=== PATIENT | female | born 1945 | race Caucasian/White ===

== ENCOUNTER 2021-02-10 19:39 | Observation (INO) ==
[2021-02-10] MEDS ORDERED: Ondansetron 4 MG/2 ML VIAL IVP PRN (22:24)
[2021-02-10] MEDS ORDERED: Naloxone 0.4 MG/ML INJ IVP PRN (22:24)
[2021-02-10] MEDS ORDERED: Melatonin 3 MG TABLET PO PRN (22:24)
[2021-02-11 05:38] LABS: Basophils # 0.1 K/mcL (0.0-0.2); Basophils % 0.5 %; Eosinophils # 0.5 K/mcL (0.0-0.6); Eosinophils % 3.9 %; Hematocrit 37.6 % (35.3-44.9); Hemoglobin 12.2 g/dL (11.5-15.4); Immature Granulocytes % 1.2 % (0-4); Lymphocytes # 3.3 K/mcL (0.6-4.6); Lymphocytes % 28.3 %; Mean Corpuscular HGB Conc 32.4 g/dL (31.6-35.5); Mean Corpuscular Hemoglobin 30.2 pg (28.0-33.3); Mean Corpuscular Volume 93.1 fL (83.0-100.0); Mean Platelet Volume 9.1 fL (9.4-12.4); Monocytes # 1.1 K/mcL (0.0-1.3); Monocytes % 9.1 %; Neutrophils # 6.7 K/mcL (1.6-8.9); Platelet Count 304 K/mcL (140-400); Red Blood Count 4.04 M/mcL (3.82-4.97); Red Cell Distribution Width 14.3 % (11.5-14.5); White Blood Count 11.7 K/mcL (4.3-11.1)
[2021-02-11 06:18] LABS: Alanine Aminotransferase 12 Units/L (7-52); Albumin 3.3 g/dL (3.5-5.7); Albumin/Globulin Ratio 1.2 (1.1-2.2); Alkaline Phosphatase 60 Units/L (34-104); Aspartate Amino Transferase 15 Units/L (13-39); BUN/Creatinine Ratio 28 (6-26); Bilirubin,Total 0.7 mg/dL (0.3-1.0); Blood Urea Nitrogen 21 mg/dL (8-23); Calcium 8.5 mg/dL (8.6-10.3); Carbon Dioxide 23 mEq/L (23-29); Chloride 101 mEq/L (98-107); Globulin 2.8 g/dL (2.4-3.5); Glucose 92 mg/dL (70-105); Magnesium 1.9 mg/dL (1.6-2.6); Osmolality,Calculated 287 (280-300); Phosphorous 2.2 mg/dL (2.7-4.5); Potassium 3.3 mEq/L (3.5-5.1); Sodium 137 mEq/L (136-145); Total Protein 6.1 g/dL (6.4-8.9); Troponin I < 0.03 ng/mL (< 0.04); eGFR For African Americans > 60 (> 60); eGFR For Non-African Americans > 60 (> 60)
[2021-02-11] MEDS ORDERED: Acetaminophen 325 MG TABLET PO PRN (06:44)
[2021-02-11] MEDS ORDERED: Potassium Chloride 40 MEQ, Lidocaine 1% 2 ML in 0.9 % Sodium Chloride 500 ML IVPB ONE (07:00)
[2021-02-11] MEDS ORDERED: Regadenoson 0.4 MG/5 ML SYRINGE IVP ONE (07:29)
[2021-02-11] MEDS: Calcium Gluconate 1gm/50mL 1 GM/50 ML BAG IVPB SCH ×2 (09:17→10:12)
[2021-02-11] MEDS ORDERED: Perflutren Lipid Microsphere 1.3 ML in 0.9 % Sodium Chloride 8.7 ML IVP PRN (11:41)
[2021-02-11 12:23] LABS: Estimated Average Glucose 123 mg/dl; Hemoglobin A1C 5.9 %
[2021-02-11 12:55] LABS: Chol/HDL Ratio 4.8 (0-4.9); Cholesterol 254 mg/dL (< 200); HDL Cholesterol 53 mg/dL (40-59); LDL Cholesterol,Calculated 166 mg/dL (< 100); Thyroid Stimulating Hormone 1.911 mcIU/mL (0.340-5.600); Triglycerides 174 mg/dL (< 150); Troponin I < 0.03 ng/mL (< 0.04)
[2021-02-11] MEDS: carvediloL 6.25 MG TABLET PO SCH (17:20)
[2021-02-11] MEDS: Aspirin 81 MG TAB.CHEW PO SCH (20:08)
[2021-02-12 07:31] VITALS: BP 158/94
[2021-02-12] MEDS: carvediloL 6.25 MG TABLET PO SCH (07:41)
[2021-02-12] MEDS: Aspirin 81 MG TAB.CHEW PO SCH (07:41)
[2021-02-12 08:11] LABS: Hematocrit 39.8 % (35.3-44.9); Hemoglobin 12.6 g/dL (11.5-15.4); Mean Corpuscular HGB Conc 31.7 g/dL (31.6-35.5); Mean Corpuscular Hemoglobin 29.6 pg (28.0-33.3); Mean Corpuscular Volume 93.4 fL (83.0-100.0); Mean Platelet Volume 9.4 fL (9.4-12.4); Platelet Count 297 K/mcL (140-400); Red Blood Count 4.26 M/mcL (3.82-4.97); Red Cell Distribution Width 14.5 % (11.5-14.5); White Blood Count 11.5 K/mcL (4.3-11.1)
[2021-02-12] MEDS ORDERED: FLUoxetine 20 MG CAPSULE PO SCH (09:00)
[2021-02-12] MEDS ORDERED: lisinopriL 5 MG TABLET PO SCH (09:00)
[2021-02-12] MEDS ORDERED: Cyanocobalamin (B-12) 1,000 MCG TABLET PO SCH (09:00)
[2021-02-12] MEDS ORDERED: Cholecalciferol (D-3) 1,000 UNIT (25MCG) TABLET PO SCH (09:00)
[2021-02-12 09:13] LABS: BUN/Creatinine Ratio 26 (6-26); Blood Urea Nitrogen 19 mg/dL (8-23); Calcium 8.7 mg/dL (8.6-10.3); Carbon Dioxide 24 mEq/L (23-29); Chloride 103 mEq/L (98-107); Glucose 98 mg/dL (70-105); Osmolality,Calculated 280 (280-300); Phosphorous 1.8 mg/dL (2.7-4.5); Potassium 4.3 mEq/L (3.5-5.1); Sodium 134 mEq/L (136-145); eGFR For African Americans > 60 (> 60); eGFR For Non-African Americans > 60 (> 60)
[2021-02-12] MEDS ORDERED: Isosorbide MONOnitrate (24 HR) 30 MG TAB.ER.24H PO SCH (10:30)
[2021-02-12] MEDS ORDERED: carvediloL 6.25 MG TABLET PO SCH (17:00)
== END 2021-02-12 15:44 | disposition home or self-care (01) ==
LOC: 3ANU → SUATTDRO 21:34
PROVIDERS: ADMIT Family Medicine; ATTEND Internal Medicine

== ENCOUNTER 2021-03-15 06:09 | Inpatient (IN) ==
[~2021-03-15 06:09] MED LIST: Aspirin 81 MG TAB.CHEW PO ONE
[2021-03-15] MEDS ORDERED: CeFAZolin Syr 2,000MG/20 ML 2,000 MG/20 ML SYRINGE IVPB ONE (06:32)
[2021-03-15] MEDS: Chlorhexidine Rinse 15 ML MOUTHWASH MM SCH ×2 (06:55→20:19)
[2021-03-15] MEDS ORDERED: NiCARdipine 2.5 MG/10 ML Syringe IVPB ONE (06:55)
[2021-03-15] MEDS ORDERED: *HR* Rocuronium Bromide 50 MG/5 ML VIAL ONE ×2 (07:07→11:52)
[2021-03-15] MEDS ORDERED: *HR* Etomidate 20 MG/10 ML AMPUL IVP ONE (07:08)
[2021-03-15] MEDS ORDERED: Famotidine 20 MG/2 ML VIAL ONE (07:08)
[2021-03-15] MEDS ORDERED: Protamine Sulfate 250 MG/25 ML VIAL IVP ONE (07:10)
[2021-03-15] MEDS ORDERED: Calcium Gluconate 1,000 MG/10 ML VIAL ONE (07:10)
[2021-03-15] MEDS ORDERED: Tranexamic Acid 1,000 MG/10 ML VIAL ONE ×2 (07:10→09:14)
[2021-03-15] MEDS ORDERED: *HR* Midazolam HCl 5 MG/5 ML VIAL IVP ONE ×2 (07:11→11:40)
[2021-03-15] MEDS ORDERED: *HR* FentaNYL (PF) 250 MCG/5 ML VIAL ONE ×2 (07:11→11:40)
[2021-03-15] MEDS ORDERED: Heparin 15,000 UNIT in 0.9 % Sodium Chloride 500 ML IV ONE (07:45)
[2021-03-15] MEDS ORDERED: Dextrose 50 % in Water (Vial) 30 ML, Sodium Bicarbonate 20 MEQ, Potassium Chloride 15 M... TH ONE (07:45)
[2021-03-15] MEDS ORDERED: Norepinephrine 4 MG in 0.9 % Sodium Chloride 250 ML IVC PRN (07:45)
[2021-03-15] MEDS ORDERED: Dextrose 50 % in Water (Vial) 30 ML, Sodium Bicarbonate 20 MEQ, Lidocaine 1% 5 ML, Insu... TH ONE ×3 (07:45)
[2021-03-15] MEDS ORDERED: Vancomycin 1,000 MG VIAL ONE (07:52)
[2021-03-15] MEDS ORDERED: Papaverine 60 MG/2 ML VIAL IVP ONE (09:46)
[2021-03-15] MEDS ORDERED: EPHEDrine 50 MG/ML VIAL ONE (11:33)
[2021-03-15] MEDS ORDERED: Ondansetron 4 MG/2 ML VIAL IVP PRN (11:53)
[2021-03-15] MEDS ORDERED: *HR* FentaNYL (PF) 100 MCG/2 ML VIAL IVP PRN (11:53)
[2021-03-15] MEDS ORDERED: Insulin Regular, Human 100 UNIT/ML IV PRN (11:53)
[2021-03-15] MEDS ORDERED: Calcium Gluconate 1gm/50mL 1 GM/50 ML BAG IVPB PRN (11:53)
[2021-03-15] MEDS ORDERED: *HR* Dextrose 50 % in Water (Vial) 50 ML VIAL IVP PRN (11:53)
[2021-03-15] MEDS ORDERED: Acetaminophen 650 MG RECTAL SUPP RC PRN (11:53)
[2021-03-15] MEDS ORDERED: Naloxone 0.4 MG/ML INJ IVP PRN (11:53)
[2021-03-15] MEDS ORDERED: Acetaminophen 325 MG TABLET PO PRN (11:53)
[2021-03-15] MEDS ORDERED: Potassium Chloride 40 MEQ/200 ML BAG IVPB PRN (11:53)
[2021-03-15] MEDS ORDERED: Albumin Human 5% 50.0 GM/1,000 ML IV.SOLN ONE (12:26)
[2021-03-15 13:02] LABS: ABG Base Excess 2 mEq/L (-2 to 3); ABG HCO3 26 mEq/L (21-27); ABG Oxygen Saturation 100 % (95-98); ABG PCO2 37 mmHg (35-45); ABG PH 7.45 pH Units (7.32-7.45); ABG PO2 188 mmHg (85-104); ABG TCO2 27 mEq/L (20-26); Blood Gas VT 500 cc
[2021-03-15 13:06] LABS: Basophils % 0.2 %; Eosinophils # 0.3 K/mcL (0.0-0.6); Eosinophils % 2.4 %; Immature Granulocytes % 0.9 % (0-4); Lymphocytes # 1.7 K/mcL (0.6-4.6); Lymphocytes % 12.3 %; Mean Corpuscular HGB Conc 32.3 g/dL (31.6-35.5); Mean Corpuscular Hemoglobin 29.3 pg (28.0-33.3); Mean Corpuscular Volume 90.6 fL (83.0-100.0); Mean Platelet Volume 9.1 fL (9.4-12.4); Monocytes # 0.4 K/mcL (0.0-1.3); Neutrophils # 11.3 K/mcL (1.6-8.9); Platelet Count 153 K/mcL (140-400); Red Blood Count 2.87 M/mcL (3.82-4.97); Red Cell Distribution Width 13.2 % (11.5-14.5); Segmented Neutrophils % 81.2 %
[2021-03-15 13:11] LABS: INR 1.3; Prothrombin Time 15.3 Seconds (9.4-12.1)
[2021-03-15 13:14] LABS: Activated Partial Thrombo Time 34.8 Seconds (26.0-36.0)
[2021-03-15] MEDS: Pantoprazole 40 MG VIAL IVP SCH (13:15)
[2021-03-15 13:16] LABS: Hemoglobin 8.4 g/dL (11.5-15.4)
[2021-03-15] MEDS: Metoclopramide 10 MG/2 ML VIAL IVP SCH ×3 (13:16→23:14)
[2021-03-15] MEDS: 0.9 % Sodium Chloride w KCl 20 MEQ/1,000 ML MLS IVC SCH (13:17)
[2021-03-15] MEDS: Ringers Solution, Lactated 1,000 ML IVC SCH ×2 (13:18→23:15)
[2021-03-15 13:19] LABS: White Blood Count 13.9 K/mcL (4.3-11.1)
[2021-03-15] MEDS: Albumin Human 5% 12.5 GM/250 ML IV.SOLN IVPB PRN ×4 (13:20→22:22)
[2021-03-15] MEDS: Norepinephrine 4 MG/254 ML IV.SOLN IVC SCH ×2 (13:36→22:22)
[2021-03-15 13:42] LABS: BUN/Creatinine Ratio 24 (6-26); Blood Urea Nitrogen 15 mg/dL (8-23); Calcium 8.5 mg/dL (8.6-10.3); Carbon Dioxide 24 mEq/L (23-29); Chloride 105 mEq/L (98-107); Glucose 112 mg/dL (70-105); Magnesium 2.2 mg/dL (1.6-2.6); Osmolality,Calculated 284 (280-300); Potassium 3.5 mEq/L (3.5-5.1); Sodium 136 mEq/L (136-145); eGFR For African Americans > 60 (> 60); eGFR For Non-African Americans > 60 (> 60)
[2021-03-15] MEDS: niCARdipine 20 MG/200 ML MLS IVC SCH ×4 (14:03→23:15)
[2021-03-15] MEDS: CeFAZolin 2 GM/120 ML BAG IVPB SCH ×2 (15:45→23:14)
[2021-03-15 16:58] LABS: ABG Base Excess 0 mEq/L (-2 to 3); ABG HCO3 24 mEq/L (21-27); ABG Oxygen Saturation 95 % (95-98); ABG PCO2 36 mmHg (35-45); ABG PH 7.44 pH Units (7.32-7.45); ABG PO2 74 mmHg (85-104); ABG TCO2 26 mEq/L (20-26); Blood Gas Modality ASSIST CONTROL; Blood Gas VT 500 cc
[2021-03-15] MEDS ORDERED: Heparin 1,000 UNITS/500 mL IV.SOLN IR ONE (17:33)
[2021-03-15] MEDS ORDERED: D5% in Water 250 ML IV BAG IV ONE (17:33)
[2021-03-15] MEDS ORDERED: Tranexamic Acid 1,000 MG/10 ML VIAL IR ONE (17:33)
[2021-03-15] MEDS ORDERED: *HR* Magnesium Sulfate 2 GM/50 ML PIGGYBACK IVPB ONE (17:33)
[2021-03-15] MEDS ORDERED: *HR* Phenylephrine 10 MG/ML VIAL IVC ONE (17:33)
[2021-03-15] MEDS ORDERED: Lidocaine 2% Syringe 100 MG/5 ML IVP ONE (17:33)
[2021-03-15] MEDS ORDERED: Albumin Human 25% 25 GM/100 ML IV.SOLN IVPB ONE (17:33)
[2021-03-15] MEDS ORDERED: Mannitol 25% vial 12.5 GM/50 ML VIAL IVPB ONE (17:33)
[2021-03-15] MEDS ORDERED: *HR* Heparin 10,000 UNIT/10 ML VIAL IR ONE (17:33)
[2021-03-15] MEDS: *HR* OxyCODONE/APAP 5/325 TABLET PO PRN (18:54)
[2021-03-15 19:06] LABS: ABG Base Excess -1 mEq/L (-2 to 3); ABG HCO3 26 mEq/L (21-27); ABG Oxygen Saturation 92 % (95-98); ABG PCO2 49 mmHg (35-45); ABG PH 7.33 pH Units (7.32-7.45); ABG PO2 70 mmHg (85-104); ABG TCO2 27 mEq/L (20-26); Blood Gas Pressure Support 8 cm H2O
[2021-03-15] MEDS: Furosemide 20 MG/2 ML VIAL IVP SCH (20:18)
[2021-03-16 05:59] LABS: BUN/Creatinine Ratio 19 (6-26); Blood Urea Nitrogen 13 mg/dL (8-23); Calcium 7.5 mg/dL (8.6-10.3); Carbon Dioxide 26 mEq/L (23-29); Chloride 104 mEq/L (98-107); Glucose 100 mg/dL (70-105); Magnesium 1.9 mg/dL (1.6-2.6); Osmolality,Calculated 284 (280-300); Sodium 137 mEq/L (136-145); eGFR For African Americans > 60 (> 60); eGFR For Non-African Americans > 60 (> 60)
[2021-03-16 06:00] LABS: Basophils % 0.3 %; Eosinophils # 0.2 K/mcL (0.0-0.6); Eosinophils % 1.6 %; Hematocrit 24.3 % (35.3-44.9); Hemoglobin 7.7 g/dL (11.5-15.4); Immature Granulocytes % 0.7 % (0-4); Lymphocytes # 1.9 K/mcL (0.6-4.6); Lymphocytes % 13.1 %; Mean Corpuscular HGB Conc 31.7 g/dL (31.6-35.5); Mean Corpuscular Hemoglobin 29.5 pg (28.0-33.3); Mean Corpuscular Volume 93.1 fL (83.0-100.0); Mean Platelet Volume 9.4 fL (9.4-12.4); Monocytes # 1.2 K/mcL (0.0-1.3); Monocytes % 8.2 %; Neutrophils # 10.8 K/mcL (1.6-8.9); Platelet Count 151 K/mcL (140-400); Red Blood Count 2.61 M/mcL (3.82-4.97); Red Cell Distribution Width 13.6 % (11.5-14.5); Segmented Neutrophils % 76.1 %; White Blood Count 14.2 K/mcL (4.3-11.1)
[2021-03-16] MEDS: niCARdipine 20 MG/200 ML MLS IVC SCH ×3 (06:06→11:12)
[2021-03-16] MEDS: Metoclopramide 10 MG/2 ML VIAL IVP SCH ×4 (06:09→18:13)
[2021-03-16 06:30] LABS: Activated Partial Thrombo Time 28.8 Seconds (26.0-36.0); INR 1.2; Prothrombin Time 13.4 Seconds (9.4-12.1)
[2021-03-16] MEDS: *HR* OxyCODONE/APAP 5/325 TABLET PO PRN ×3 (07:12→18:13)
[2021-03-16] MEDS: Pantoprazole 40 MG VIAL IVP SCH (07:30)
[2021-03-16] MEDS: Furosemide 20 MG/2 ML VIAL IVP SCH ×2 (11:11→19:18)
[2021-03-16] MEDS: Chlorhexidine Rinse 15 ML MOUTHWASH MM SCH ×3 (11:11→19:17)
[2021-03-16] MEDS: Norepinephrine 4 MG/254 ML IV.SOLN IVC SCH (11:12)
[2021-03-16] MEDS: 0.9 % Sodium Chloride w KCl 20 MEQ/1,000 ML MLS IVC SCH (11:22)
[2021-03-16] MEDS ORDERED: *HR* Dextrose 50 % in Water (Vial) 50 ML VIAL IVP PRN (11:30)
[2021-03-16] MEDS ORDERED: Acetaminophen 325 MG TABLET PO PRN (11:30)
[2021-03-16] MEDS ORDERED: Naloxone 0.4 MG/ML INJ IVP PRN (11:30)
[2021-03-16] MEDS ORDERED: Nitroglycerin 0.4 MG TAB.SUBL SL PRN (11:30)
[2021-03-16] MEDS ORDERED: Dextrose Gel 15 GM/37.5 ML TUBE PO PRN ×2 (11:30)
[2021-03-16] MEDS ORDERED: Ondansetron 4 MG/2 ML VIAL IVP PRN (11:30)
[2021-03-16] MEDS ORDERED: D5% in Water 1,000 ML IVC PRN (11:30)
[2021-03-16] MEDS ORDERED: *HR* FentaNYL (PF) 100 MCG/2 ML VIAL IVP PRN (11:53)
[2021-03-16] MEDS: carvediloL 6.25 MG TABLET PO SCH ×2 (11:55→18:13)
[2021-03-16] MEDS: Insulin LISPRO 300 UNITS/3 ML VIAL SUBQ SCH ×2 (11:55→17:00)
[2021-03-16] MEDS: *HR* Heparin 5,000 UNIT/ML VIAL SQ SCH ×2 (12:09→18:13)
[2021-03-16] MEDS: FLUoxetine 20 MG CAPSULE PO SCH (12:09)
[2021-03-16] MEDS ORDERED: Insulin LISPRO 300 UNITS/3 ML VIAL SUBQ SCH (21:00)
[2021-03-17] MEDS: Metoclopramide 10 MG/2 ML VIAL IVP SCH ×2 (00:08→05:03)
[2021-03-17 04:35] LABS: Basophils % 0.2 %; Eosinophils # 0.5 K/mcL (0.0-0.6); Eosinophils % 3.8 %; Hematocrit 21.7 % (35.3-44.9); Immature Granulocytes % 0.6 % (0-4); Lymphocytes # 1.7 K/mcL (0.6-4.6); Lymphocytes % 13.4 %; Mean Corpuscular HGB Conc 30.9 g/dL (31.6-35.5); Mean Corpuscular Hemoglobin 29.4 pg (28.0-33.3); Mean Corpuscular Volume 95.2 fL (83.0-100.0); Monocytes # 1.2 K/mcL (0.0-1.3); Monocytes % 9.9 %; Neutrophils # 8.8 K/mcL (1.6-8.9); Platelet Count 135 K/mcL (140-400); Red Blood Count 2.28 M/mcL (3.82-4.97); Red Cell Distribution Width 13.8 % (11.5-14.5); Segmented Neutrophils % 72.1 %; White Blood Count 12.3 K/mcL (4.3-11.1)
[2021-03-17 04:39] LABS: Hemoglobin 6.7 g/dL (11.5-15.4)
[2021-03-17 04:50] LABS: BUN/Creatinine Ratio 22 (6-26); Blood Urea Nitrogen 21 mg/dL (8-23); Calcium 7.4 mg/dL (8.6-10.3); Carbon Dioxide 26 mEq/L (23-29); Chloride 101 mEq/L (98-107); Glucose 84 mg/dL (70-105); Osmolality,Calculated 276 (280-300); Potassium 3.9 mEq/L (3.5-5.1); Sodium 132 mEq/L (136-145); eGFR For African Americans > 60 (> 60); eGFR For Non-African Americans 58 (> 60)
[2021-03-17] MEDS: *HR* Heparin 5,000 UNIT/ML VIAL SQ SCH ×2 (05:03→17:51)
[2021-03-17] MEDS: FLUoxetine 20 MG CAPSULE PO SCH (08:09)
[2021-03-17] MEDS: carvediloL 6.25 MG TABLET PO SCH ×2 (08:09→17:51)
[2021-03-17] MEDS: *HR* OxyCODONE/APAP 5/325 TABLET PO PRN ×2 (08:09→19:17)
[2021-03-17] MEDS: Furosemide 20 MG/2 ML VIAL IVP SCH (08:10)
[2021-03-17] MEDS: Chlorhexidine Rinse 15 ML MOUTHWASH MM SCH ×2 (08:10→19:18)
[2021-03-17] MEDS: Insulin LISPRO 300 UNITS/3 ML VIAL SUBQ SCH ×4 (08:11→19:21)
[2021-03-17] MEDS ORDERED: Aspirin Enteric Coated 81 MG Tablet PO SCH ×2 (09:00)
[2021-03-17] MEDS ORDERED: Pantoprazole 40 MG VIAL IVP SCH (09:00)
[2021-03-17] MEDS ORDERED: 0.9 % Sodium Chloride 500 ML ONE (09:36)
[2021-03-17] MEDS ORDERED: D5% in Water 1,000 ML IVC PRN (10:38)
[2021-03-17] MEDS ORDERED: Naloxone 0.4 MG/ML INJ IVP PRN (10:38)
[2021-03-17] MEDS ORDERED: *HR* Dextrose 50 % in Water (Vial) 50 ML VIAL IVP PRN (10:38)
[2021-03-17] MEDS ORDERED: Dextrose Gel 15 GM/37.5 ML TUBE PO PRN ×2 (10:38)
[2021-03-17] MEDS ORDERED: Nitroglycerin 0.4 MG TAB.SUBL SL PRN (10:38)
[2021-03-17] MEDS ORDERED: Ondansetron 4 MG/2 ML VIAL IVP PRN (10:38)
[2021-03-18] MEDS: *HR* Heparin 5,000 UNIT/ML VIAL SQ SCH ×2 (05:13→18:22)
[2021-03-18 07:32] LABS: Basophils % 0.4 %; Eosinophils # 0.6 K/mcL (0.0-0.6); Eosinophils % 5.7 %; Hematocrit 26.4 % (35.3-44.9); Hemoglobin 8.4 g/dL (11.5-15.4); Immature Granulocytes % 0.6 % (0-4); Lymphocytes # 1.2 K/mcL (0.6-4.6); Mean Corpuscular HGB Conc 31.8 g/dL (31.6-35.5); Mean Corpuscular Hemoglobin 29.6 pg (28.0-33.3); Mean Platelet Volume 9.8 fL (9.4-12.4); Monocytes % 9.3 %; Neutrophils # 7.4 K/mcL (1.6-8.9); Platelet Count 159 K/mcL (140-400); Red Blood Count 2.84 M/mcL (3.82-4.97); Red Cell Distribution Width 14.4 % (11.5-14.5); White Blood Count 10.3 K/mcL (4.3-11.1)
[2021-03-18 07:51] LABS: BUN/Creatinine Ratio 26 (6-26); Blood Urea Nitrogen 18 mg/dL (8-23); Carbon Dioxide 26 mEq/L (23-29); Chloride 101 mEq/L (98-107); Glucose 91 mg/dL (70-105); Osmolality,Calculated 277 (280-300); Potassium 3.7 mEq/L (3.5-5.1); Sodium 133 mEq/L (136-145); eGFR For African Americans > 60 (> 60); eGFR For Non-African Americans > 60 (> 60)
[2021-03-18] MEDS: FLUoxetine 20 MG CAPSULE PO SCH (08:40)
[2021-03-18] MEDS: Chlorhexidine Rinse 15 ML MOUTHWASH MM SCH ×2 (08:40→19:58)
[2021-03-18] MEDS: Aspirin Enteric Coated 81 MG Tablet PO SCH (08:40)
[2021-03-18] MEDS: Pantoprazole 40 MG VIAL IVP SCH (08:41)
[2021-03-18] MEDS: carvediloL 6.25 MG TABLET PO SCH ×2 (08:41→18:22)
[2021-03-18] MEDS: Insulin LISPRO 300 UNITS/3 ML VIAL SUBQ SCH ×4 (09:00→20:00)
[2021-03-18] MEDS: Acetaminophen 325 MG TABLET PO PRN (14:21)
[2021-03-19] MEDS: *HR* Heparin 5,000 UNIT/ML VIAL SQ SCH ×2 (05:47→17:47)
[2021-03-19 06:40] LABS: Basophils % 0.2 %; Eosinophils # 0.7 K/mcL (0.0-0.6); Eosinophils % 7.7 %; Hematocrit 25.8 % (35.3-44.9); Hemoglobin 8.4 g/dL (11.5-15.4); Immature Granulocytes % 0.4 % (0-4); Lymphocytes # 1.5 K/mcL (0.6-4.6); Lymphocytes % 15.8 %; Mean Corpuscular HGB Conc 32.6 g/dL (31.6-35.5); Mean Corpuscular Hemoglobin 30.3 pg (28.0-33.3); Mean Corpuscular Volume 93.1 fL (83.0-100.0); Mean Platelet Volume 9.6 fL (9.4-12.4); Monocytes # 0.9 K/mcL (0.0-1.3); Monocytes % 9.5 %; Neutrophils # 6.3 K/mcL (1.6-8.9); Platelet Count 189 K/mcL (140-400); Red Blood Count 2.77 M/mcL (3.82-4.97); Red Cell Distribution Width 14.1 % (11.5-14.5); Segmented Neutrophils % 66.4 %; White Blood Count 9.5 K/mcL (4.3-11.1)
[2021-03-19 07:05] LABS: BUN/Creatinine Ratio 24 (6-26); Blood Urea Nitrogen 14 mg/dL (8-23); Calcium 8.4 mg/dL (8.6-10.3); Carbon Dioxide 27 mEq/L (23-29); Chloride 102 mEq/L (98-107); Glucose 94 mg/dL (70-105); Osmolality,Calculated 282 (280-300); Potassium 3.6 mEq/L (3.5-5.1); Sodium 136 mEq/L (136-145); eGFR For African Americans > 60 (> 60); eGFR For Non-African Americans > 60 (> 60)
[2021-03-19] MEDS: Insulin LISPRO 300 UNITS/3 ML VIAL SUBQ SCH ×4 (09:07→21:05)
[2021-03-19] MEDS: Acetaminophen 325 MG TABLET PO PRN ×3 (09:08→23:18)
[2021-03-19] MEDS: carvediloL 6.25 MG TABLET PO SCH ×2 (09:09→17:47)
[2021-03-19] MEDS: Aspirin Enteric Coated 81 MG Tablet PO SCH (09:09)
[2021-03-19] MEDS: FLUoxetine 20 MG CAPSULE PO SCH (09:09)
[2021-03-19] MEDS: Chlorhexidine Rinse 15 ML MOUTHWASH MM SCH ×2 (09:09→19:39)
[2021-03-19] MEDS: Pantoprazole 40 MG VIAL IVP SCH (09:09)
[2021-03-19] MEDS: GuaiFENesin Liq 200 MG/10 ML UDC PO PRN ×3 (10:19→23:23)
[2021-03-20] MEDS: *HR* OxyCODONE/APAP 5/325 TABLET PO PRN ×2 (01:38→23:34)
[2021-03-20] MEDS: *HR* Heparin 5,000 UNIT/ML VIAL SQ SCH ×2 (06:44→17:52)
[2021-03-20] MEDS: Insulin LISPRO 300 UNITS/3 ML VIAL SUBQ SCH ×4 (07:19→19:46)
[2021-03-20] MEDS: Chlorhexidine Rinse 15 ML MOUTHWASH MM SCH ×2 (09:03→20:37)
[2021-03-20] MEDS: Pantoprazole 40 MG VIAL IVP SCH (09:04)
[2021-03-20] MEDS: carvediloL 6.25 MG TABLET PO SCH ×2 (09:04→16:38)
[2021-03-20] MEDS: FLUoxetine 20 MG CAPSULE PO SCH (09:04)
[2021-03-20] MEDS: Aspirin Enteric Coated 81 MG Tablet PO SCH (09:04)
[2021-03-20] MEDS: GuaiFENesin Liq 200 MG/10 ML UDC PO PRN ×3 (10:39→23:34)
[2021-03-20] MEDS: amLODIPine 5 MG TABLET PO SCH (10:46)
[2021-03-20] MEDS: Acetaminophen 325 MG TABLET PO PRN (20:36)
[2021-03-21] MEDS ORDERED: Amiodarone Premix 360 MG/200 ML BAG IVC ONE (00:11)
[2021-03-21] MEDS ORDERED: Amiodarone Premix 150 MG/100 ML BAG IVPB ONE (00:11)
[2021-03-21] MEDS: *HR* Heparin 5,000 UNIT/ML VIAL SQ SCH ×2 (05:34→17:13)
[2021-03-21] MEDS: Amiodarone Premix 360 MG/200 ML BAG IVC SCH ×2 (06:50→18:28)
[2021-03-21] MEDS: amLODIPine 5 MG TABLET PO SCH (07:15)
[2021-03-21] MEDS: Aspirin Enteric Coated 81 MG Tablet PO SCH (07:15)
[2021-03-21] MEDS: FLUoxetine 20 MG CAPSULE PO SCH (07:15)
[2021-03-21] MEDS: Pantoprazole 40 MG VIAL IVP SCH (07:16)
[2021-03-21] MEDS: Chlorhexidine Rinse 15 ML MOUTHWASH MM SCH ×2 (07:16→20:09)
[2021-03-21] MEDS: carvediloL 6.25 MG TABLET PO SCH ×2 (07:16→17:13)
[2021-03-21] MEDS: Insulin LISPRO 300 UNITS/3 ML VIAL SUBQ SCH ×4 (07:34→19:25)
[2021-03-21] MEDS: GuaiFENesin Liq 200 MG/10 ML UDC PO PRN ×2 (08:46→20:09)
[2021-03-21] MEDS: Acetaminophen 325 MG TABLET PO PRN (14:59)
[2021-03-21] MEDS: *HR* OxyCODONE/APAP 5/325 TABLET PO PRN (22:49)
[2021-03-22] MEDS: Amiodarone Premix 360 MG/200 ML BAG IVC SCH (06:34)
[2021-03-22] MEDS: *HR* Heparin 5,000 UNIT/ML VIAL SQ SCH (06:34)
[2021-03-22 07:06] VITALS: TEMP 98.9
[2021-03-22] MEDS: amLODIPine 5 MG TABLET PO SCH (08:52)
[2021-03-22] MEDS: Aspirin Enteric Coated 81 MG Tablet PO SCH (08:52)
[2021-03-22] MEDS: Insulin LISPRO 300 UNITS/3 ML VIAL SUBQ SCH (08:52)
[2021-03-22] MEDS: carvediloL 6.25 MG TABLET PO SCH (08:52)
[2021-03-22] MEDS: FLUoxetine 20 MG CAPSULE PO SCH (08:52)
[2021-03-22] MEDS: Chlorhexidine Rinse 15 ML MOUTHWASH MM SCH (08:52)
[2021-03-22 10:14] VITALS: BP 129/76; PULSE 71
[2021-03-22] MEDS: Acetaminophen 325 MG TABLET PO PRN (11:45)
[2021-03-22 11:55] LABS: Adenovirus Not Detected (Not Detect); Bordetella Pertussis Not Detected (Not Detect); Chlamydophila pneumoniae Not Detected (Not Detect); Coronavirus 229E Not Detected (Not Detect); Coronavirus HKU1 Not Detected (Not Detect); Coronavirus NL63 Not Detected (Not Detect); Coronavirus OC43 Not Detected (Not Detect); Human Metapneumovirus Not Detected (Not Detect); Human Rhinovirus/Enterovirus Not Detected (Not Detect); Influenza A Subtype 2009 H1 Not Detected (Not Detect); Influenza B Not Detected (Not Detect); Mycoplasma pneumoniae Not Detected (Not Detect); Parainfluenza Virus 1 Not Detected (Not Detect); Parainfluenza Virus 2 Not Detected (Not Detect); Parainfluenza Virus 3 Not Detected (Not Detect); Parainfluenza Virus 4 Not Detected (Not Detect); Respiratory Syncytial Virus Not Detected (Not Detect); SARS-CoV-2 Not Detected (Not Detect)
[2021-03-22 14:35] VITALS: O2SAT 92
== END 2021-03-22 13:35 | DRG 236 ==
LOC: SAMDAY 06:09 → ICNU 11:59 → 2NNU 03-19 15:57
PROVIDERS: ADMIT Thoracic Surgery (Cardiothoracic Vascular Surgery); ATTEND Thoracic Surgery (Cardiothoracic Vascular Surgery)

== ENCOUNTER 2021-03-27 22:03 | Observation (INO) ==
[2021-03-27 23:14] LABS: Basophils % 0.3 %; Eosinophils # 1.3 K/mcL (0.0-0.6); Eosinophils % 8.7 %; Hematocrit 27.6 % (35.3-44.9); Hemoglobin 8.7 g/dL (11.5-15.4); Immature Granulocytes % 0.8 % (0-4); Lymphocytes # 1.5 K/mcL (0.6-4.6); Lymphocytes % 9.8 %; Mean Corpuscular HGB Conc 31.5 g/dL (31.6-35.5); Mean Corpuscular Hemoglobin 29.3 pg (28.0-33.3); Mean Corpuscular Volume 92.9 fL (83.0-100.0); Mean Platelet Volume 9.2 fL (9.4-12.4); Monocytes # 0.9 K/mcL (0.0-1.3); Monocytes % 6.1 %; Neutrophils # 11.1 K/mcL (1.6-8.9); Platelet Count 606 K/mcL (140-400); Red Blood Count 2.97 M/mcL (3.82-4.97); Red Cell Distribution Width 14.3 % (11.5-14.5); Segmented Neutrophils % 74.3 %; White Blood Count 14.9 K/mcL (4.3-11.1)
[2021-03-27] MEDS ORDERED: Azithromycin 250 MG TABLET PO ONE (23:19)
[2021-03-27] MEDS ORDERED: cefTRIAXone 1,000 MG in 0.9 % Sodium Chloride Mini Bag 100 ML IVPB ONE (23:21)
[2021-03-27 23:37] LABS: BUN/Creatinine Ratio 28 (6-26); Blood Urea Nitrogen 23 mg/dL (8-23); Calcium 10.2 mg/dL (8.6-10.3); Carbon Dioxide 25 mEq/L (23-29); Chloride 99 mEq/L (98-107); Glucose 108 mg/dL (70-105); Lipase 17 Units/L (11-82); Osmolality,Calculated 276 (280-300); Potassium 5.4 mEq/L (3.5-5.1); Sodium 131 mEq/L (136-145); eGFR For African Americans > 60 (> 60); eGFR For Non-African Americans > 60 (> 60)
[2021-03-27 23:38] LABS: Troponin I < 0.03 ng/mL (< 0.04)
[2021-03-27] MEDS ORDERED: Isovue-370 500 ML BOTTLE IVP ONE (23:53)
[2021-03-28 00:16] LABS: Adenovirus Not Detected (Not Detect); Bordetella Pertussis Not Detected (Not Detect); Chlamydophila pneumoniae Not Detected (Not Detect); Coronavirus 229E Not Detected (Not Detect); Coronavirus HKU1 Not Detected (Not Detect); Coronavirus NL63 Not Detected (Not Detect); Coronavirus OC43 Not Detected (Not Detect); Human Metapneumovirus Not Detected (Not Detect); Human Rhinovirus/Enterovirus Not Detected (Not Detect); Influenza A Subtype 2009 H1 Not Detected (Not Detect); Influenza B Not Detected (Not Detect); Mycoplasma pneumoniae Not Detected (Not Detect); Parainfluenza Virus 1 Not Detected (Not Detect); Parainfluenza Virus 2 Not Detected (Not Detect); Parainfluenza Virus 3 Not Detected (Not Detect); Parainfluenza Virus 4 Not Detected (Not Detect); Respiratory Syncytial Virus Not Detected (Not Detect); SARS-CoV-2 Not Detected (Not Detect)
[2021-03-28] MEDS ORDERED: Furosemide 20 MG/2 ML VIAL IVP STA (01:04)
[2021-03-28] MEDS ORDERED: Ondansetron 4 MG/2 ML VIAL IVP PRN (05:57)
[2021-03-28] MEDS ORDERED: Melatonin 3 MG TABLET PO PRN (05:57)
[2021-03-28] MEDS ORDERED: Naloxone 0.4 MG/ML INJ IVP PRN (05:57)
[2021-03-28] MEDS ORDERED: Perflutren Lipid Microsphere 1.3 ML in 0.9 % Sodium Chloride 8.7 ML IVP PRN (07:04)
[2021-03-28 07:46] LABS: Basophils % 0.2 %; Eosinophils # 1.1 K/mcL (0.0-0.6); Hematocrit 27.3 % (35.3-44.9); Hemoglobin 8.7 g/dL (11.5-15.4); Immature Granulocytes % 0.7 % (0-4); Lymphocytes # 1.4 K/mcL (0.6-4.6); Lymphocytes % 11.7 %; Mean Corpuscular HGB Conc 31.9 g/dL (31.6-35.5); Mean Corpuscular Hemoglobin 29.2 pg (28.0-33.3); Mean Corpuscular Volume 91.6 fL (83.0-100.0); Mean Platelet Volume 10.6 fL (9.4-12.4); Monocytes # 0.6 K/mcL (0.0-1.3); Platelet Count 405 K/mcL (140-400); Red Blood Count 2.98 M/mcL (3.82-4.97); Red Cell Distribution Width 14.3 % (11.5-14.5); Segmented Neutrophils % 73.4 %; White Blood Count 12.2 K/mcL (4.3-11.1)
[2021-03-28] MEDS ORDERED: Furosemide 20 MG/2 ML VIAL IVP SCH (09:00)
[2021-03-28 11:39] LABS: BUN/Creatinine Ratio 29 (6-26); Blood Urea Nitrogen 20 mg/dL (8-23); Calcium 9.5 mg/dL (8.6-10.3); Carbon Dioxide 30 mEq/L (23-29); Chloride 97 mEq/L (98-107); Glucose 85 mg/dL (70-105); Osmolality,Calculated 276 (280-300); Potassium 4.6 mEq/L (3.5-5.1); Sodium 132 mEq/L (136-145); eGFR For African Americans > 60 (> 60); eGFR For Non-African Americans > 60 (> 60)
[2021-03-28] MEDS: Acetaminophen 325 MG TABLET PO PRN ×2 (14:06→21:06)
[2021-03-28] MEDS: *HR* Heparin 5,000 UNIT/ML VIAL SQ SCH (18:02)
[2021-03-28 18:26] LABS: Bilirubin,Urine Negative (Negative); Blood,Urine Negative (Negative); Clarity,Urine Clear (Clear); Color,Urine Light-Yellow (Yellow); Glucose,Urine (UA) Normal (Normal); Ketones,Urine Negative (Negative); Leukocyte Esterase,Urine Negative (Negative); Nitrite,Urine Negative (Negative); Protein,Urine Negative (Neg-Trace); Specific Gravity,Urine 1.017 (1.010-1.025); Urobilinogen,Urine Normal (Normal)
[2021-03-28] MEDS: Furosemide 20 MG/2 ML VIAL IVP SCH (21:07)
[2021-03-29 01:21] LABS: Basophils % 0.3 %; Eosinophils # 1.2 K/mcL (0.0-0.6); Eosinophils % 9.2 %; Hematocrit 24.9 % (35.3-44.9); Hemoglobin 8.1 g/dL (11.5-15.4); Immature Granulocytes % 0.8 % (0-4); Lymphocytes # 1.6 K/mcL (0.6-4.6); Lymphocytes % 12.5 %; Mean Corpuscular HGB Conc 32.5 g/dL (31.6-35.5); Mean Corpuscular Hemoglobin 29.5 pg (28.0-33.3); Mean Corpuscular Volume 90.5 fL (83.0-100.0); Mean Platelet Volume 9.3 fL (9.4-12.4); Monocytes # 0.9 K/mcL (0.0-1.3); Monocytes % 6.9 %; Platelet Count 588 K/mcL (140-400); Red Blood Count 2.75 M/mcL (3.82-4.97); Red Cell Distribution Width 14.2 % (11.5-14.5); Segmented Neutrophils % 70.3 %; White Blood Count 12.8 K/mcL (4.3-11.1)
[2021-03-29 01:41] LABS: Alanine Aminotransferase 19 Units/L (7-52); Albumin 2.7 g/dL (3.5-5.7); Alkaline Phosphatase 59 Units/L (34-104); Aspartate Amino Transferase 16 Units/L (13-39); BUN/Creatinine Ratio 24 (6-26); Bilirubin,Total 0.4 mg/dL (0.3-1.0); Blood Urea Nitrogen 18 mg/dL (8-23); Calcium 8.9 mg/dL (8.6-10.3); Carbon Dioxide 28 mEq/L (23-29); Chloride 97 mEq/L (98-107); Globulin 2.8 g/dL (2.4-3.5); Glucose 113 mg/dL (70-105); Magnesium 1.5 mg/dL (1.6-2.6); Osmolality,Calculated 277 (280-300); Phosphorous 3.2 mg/dL (2.7-4.5); Sodium 132 mEq/L (136-145); Total Protein 5.5 g/dL (6.4-8.9); eGFR For African Americans > 60 (> 60); eGFR For Non-African Americans > 60 (> 60)
[2021-03-29] MEDS: *HR* Heparin 5,000 UNIT/ML VIAL SQ SCH ×2 (06:10→17:53)
[2021-03-29] MEDS: Acetaminophen 325 MG TABLET PO PRN ×2 (06:10→12:14)
[2021-03-29] MEDS: lisinopriL 10 MG TABLET PO SCH (07:33)
[2021-03-29] MEDS: Furosemide 20 MG/2 ML VIAL IVP SCH ×2 (07:33→21:42)
[2021-03-30] MEDS: Acetaminophen 325 MG TABLET PO PRN ×2 (00:17→17:11)
[2021-03-30 02:41] LABS: Basophils % 0.3 %; Eosinophils # 1.1 K/mcL (0.0-0.6); Eosinophils % 9.5 %; Hematocrit 26.7 % (35.3-44.9); Hemoglobin 8.9 g/dL (11.5-15.4); Lymphocytes # 1.7 K/mcL (0.6-4.6); Mean Corpuscular HGB Conc 33.3 g/dL (31.6-35.5); Mean Corpuscular Volume 89.9 fL (83.0-100.0); Monocytes % 8.4 %; Neutrophils # 7.9 K/mcL (1.6-8.9); Platelet Count 619 K/mcL (140-400); Red Blood Count 2.97 M/mcL (3.82-4.97); Red Cell Distribution Width 14.3 % (11.5-14.5); Segmented Neutrophils % 66.8 %; White Blood Count 11.9 K/mcL (4.3-11.1)
[2021-03-30 03:05] LABS: BUN/Creatinine Ratio 26 (6-26); Blood Urea Nitrogen 15 mg/dL (8-23); Calcium 8.9 mg/dL (8.6-10.3); Carbon Dioxide 30 mEq/L (23-29); Chloride 94 mEq/L (98-107); Glucose 90 mg/dL (70-105); Osmolality,Calculated 274 (280-300); Potassium 3.7 mEq/L (3.5-5.1); Sodium 132 mEq/L (136-145); eGFR For African Americans > 60 (> 60); eGFR For Non-African Americans > 60 (> 60)
[2021-03-30] MEDS: *HR* Heparin 5,000 UNIT/ML VIAL SQ SCH ×2 (06:29→17:06)
[2021-03-30] MEDS: lisinopriL 10 MG TABLET PO SCH (08:38)
[2021-03-30] MEDS: Furosemide 20 MG/2 ML VIAL IVP SCH ×2 (08:38→19:39)
[2021-03-31 02:38] LABS: Hematocrit 27.7 % (35.3-44.9); Mean Corpuscular HGB Conc 32.5 g/dL (31.6-35.5); Mean Corpuscular Hemoglobin 29.3 pg (28.0-33.3); Mean Corpuscular Volume 90.2 fL (83.0-100.0); Mean Platelet Volume 8.9 fL (9.4-12.4); Platelet Count 647 K/mcL (140-400); Red Blood Count 3.07 M/mcL (3.82-4.97); Red Cell Distribution Width 14.2 % (11.5-14.5); White Blood Count 11.8 K/mcL (4.3-11.1)
[2021-03-31 02:49] LABS: BUN/Creatinine Ratio 28 (6-26); Blood Urea Nitrogen 17 mg/dL (8-23); Calcium 8.9 mg/dL (8.6-10.3); Carbon Dioxide 31 mEq/L (23-29); Chloride 95 mEq/L (98-107); Glucose 82 mg/dL (70-105); Osmolality,Calculated 277 (280-300); Potassium 3.8 mEq/L (3.5-5.1); Sodium 133 mEq/L (136-145); eGFR For African Americans > 60 (> 60); eGFR For Non-African Americans > 60 (> 60)
[2021-03-31] MEDS: *HR* Heparin 5,000 UNIT/ML VIAL SQ SCH (04:23)
[2021-03-31] MEDS: Acetaminophen 325 MG TABLET PO PRN (04:23)
[2021-03-31 07:47] VITALS: BP 141/70; PULSE 92; TEMP 98.2; O2SAT 90
[2021-03-31] MEDS: Furosemide 20 MG/2 ML VIAL IVP SCH (09:03)
[2021-03-31] MEDS: lisinopriL 10 MG TABLET PO SCH (09:03)
== END 2021-03-31 11:18 | disposition home or self-care (01) ==
LOC: EMEROOARM 22:03 → 2NNU 22:03 → SUATTDRO 03-28 03:43 → 2NNU 03-28 04:05
PROVIDERS: ADMIT Family Medicine; ATTEND Internal Medicine